=== PATIENT | female | born 1965 | race Native Hawaiian/Other Pacific Islander ===

== ENCOUNTER 2016-10-02 06:19 | Day surgery (SDC) | payer OTHER ==
[2016-09-11 08:46] VITALS: BMI 30.9
[2016-10-02] MEDS ORDERED: Propofol 10 mg/ml Inj (20 ML) ONE (07:32)
[2016-10-02] MEDS ORDERED: Midazolam 2 MG/2 ML VIAL ONE (07:32)
--- NOTE | 2016-10-02 07:43 | CP.SDSHP ---
Same Day Surgery H & P - History Proposed Procedure: colonoscopy Pre-Op Diagnosis: screening for colon cancer - Previous Medical/Surgical History Endocrine/Metabolic: Diabetes Comments: hyperlipidemia - Allergies Allergies: Allergies No Known Allergies Allergy (Verified 09/11/16 08:46) - Current Medications Current Medications: see med list - Physical Exam General Appearance: NAD Mental Status: Alert & Oriented x3 Heart: WNL Lungs: WNL GI: WNL - {Optional Preform as Required} Abdomen: WNL - Impression Impression: 51 year old female here for index screening colonoscopy Pt. Evaluated Today:Candidate for Anesthesia & Procedure: Yes - Date & Time Date: 10/02/16 Time: 07:43 Short Stay Discharge - Short Stay Discharge Admitting Diagnosis/Reason for Visit: SCREENING Disposition: HOME/ ROUTINE
[2016-10-03 15:46] VITALS: TEMP 97.7; O2SAT 98
[2016-10-03 15:48] VITALS: BP 103/65; PULSE 68; RESP 15
== END 2016-10-02 09:15 | disposition home or self-care (01) ==
LOC: C.ENDO 06:19
PROVIDERS: ATTEND Internal Medicine Gastroenterology
DX: Z12.11 Encounter for screening for malignant neoplasm of colon (principal); K64.8 Other hemorrhoids; E11.9 Type 2 diabetes mellitus without complications; E78.5 Hyperlipidemia, unspecified
CPT/HCPCS: 45380; 82948; 88305; J2250; J2704